=== PATIENT | male | born 1975 ===

== ENCOUNTER 2024-11-01 06:20 | Day surgery (SDC) | payer OTHER, SELFPAY | END 2024-11-01 15:50 | disposition home or self-care (01) | LOC: GI 06:20 | PROVIDERS: ATTENDING PHYSICIAN Internal Medicine Gastroenterology | DX: Z12.11 Encounter for screening for malignant neoplasm of colon (principal); K64.8 Other hemorrhoids; Q43.8 Other specified congenital malformations of intestine; D12.3 Benign neoplasm of transverse colon; D12.8 Benign neoplasm of rectum; Z83.719 Family history of colon polyps, unspecified | CPT/HCPCS: 45385; 45380; 88305 ==